=== PATIENT | male | born 1995 | race Caucasian/White ===

== ENCOUNTER 2018-01-01 14:27 | Emergency (ER) | payer SELFPAY ==
[~2018-01-01] VITALS: Ht 167.6 cm; Wt 95.0 kg
[2018-01-01 14:40] VITALS: BP 144/74; PULSE 93; RESP 16; TEMP 100.9; O2SAT 97
[2018-01-01] MEDS ORDERED: SODIUM CHLOR 0.9% 1000 ML INJ 1,000 ML IV SCH (14:54)
[2018-01-01] MEDS ORDERED: SODIUM CHLORIDE 0.9% FLUSH 10 ML FLUSH IV FLUSH PRN (15:00)
[2018-01-01] MEDS ORDERED: ONDANSETRON HCL 4 MG/2 ML VIAL IVP ONE (15:00)
[2018-01-01 15:19] LABS: AUTOMATED NEUTROPHIL # 10.2 TH/MM3 (1.8-7.7); BASOPHIL % 0.2 % (0.0-2.0); HEMATOCRIT 44.5 % (39.0-51.0); HEMOGLOBIN 15.6 GM/DL (13.0-17.0); LYMPH % 4.6 % (9.0-44.0); LYMPHOCYTE # 0.5 TH/MM3 (1.0-4.8); MEAN CELL VOLUME 86.2 FL (80.0-100.0); MEAN CORPUSCULAR HEMOGLOBIN 30.1 PG (27.0-34.0); MEAN PLATELET VOLUME 8.6 FL (7.0-11.0); MONO % 8.3 % (0.0-8.0); NEUT % 86.9 % (16.0-70.0); PLATELET COUNT 228 TH/MM3 (150-450); RED BLOOD COUNT 5.17 MIL/MM3 (4.50-5.90); RED CELL DISTRIBUTION WIDTH 11.9 % (11.6-17.2); WHITE BLOOD COUNT 11.7 TH/MM3 (4.0-11.0)
[2018-01-01 15:20] LABS: BILIRUBIN, URINE NEG (NEG); BLOOD, URINE TRACE (NEG); GLUCOSE,URINE NEG (NEG); KETONE, URINE NEG (NEG); NITRITE,URINE NEG (NEG); URINE LEUKOCYTE ESTERASE NEG (NEG)
[2018-01-01 15:21] LABS: URINE COLOR YELLOW (YELLW/STRAW)
[2018-01-01 15:24] LABS: RBC, URINE 0-3 /hpf (0-3); SQUAMOUS EPITHELIAL CELL URINE 0-5 /hpf (0-5); WBC, URINE 0-2 /hpf (0-5)
[2018-01-01 15:27] LABS: CHLORIDE 101 MEQ/L (98-107); SODIUM (NA) 135 MEQ/L (136-145)
[2018-01-01 15:30] LABS: CALCIUM 8.8 MG/DL (8.5-10.1)
[2018-01-01 15:31] LABS: ALBUMIN 4.1 GM/DL (3.4-5.0); BICARBONATE 26.8 MEQ/L (21.0-32.0); BLOOD UREA NITROGEN 16 MG/DL (7-18); GLUCOSE,RANDOM 96 MG/DL (74-106)
[2018-01-01 15:33] LABS: ALT (GPT) 43 U/L (12-78)
[2018-01-01 15:34] LABS: AST (GOT) 20 U/L (15-37); CREATININE 0.98 MG/DL (0.60-1.30); GLOMERULAR FILTRATION RATE 94 ML/MIN (>89)
[2018-01-01 15:35] LABS: TOTAL BILIRUBIN ADULT 0.4 MG/DL (0.2-1.0); TOTAL PROTEIN 8.2 GM/DL (6.4-8.2)
[2018-01-01 15:36] LABS: ALKALINE PHOSPHATASE 73 U/L (45-117)
[2018-01-01 15:45] VITALS: TEMP 102.1
[2018-01-01] MEDS ORDERED: ACETAMINOPHEN 500 MG CPLT PO ONE (15:45)
[2018-01-01] MEDS ORDERED: OSEL75 PO (15:49)
[2018-01-01] MEDS ORDERED: ZOFR4TAB3 SL (15:49)
--- NOTE | 2018-01-01 15:51 | PD ---
HPI Chief Complaint: GI Complaint Time Seen by Provider: 14:45 Travel History International Travel<30 days: No Contact w/Intl Traveler<30days: No Traveled to known affect area: No History of Present Illness HPI This is an otherwise healthy 22-year-old male who presents for flulike symptoms. He states that yesterday, he developed fever, chills, body aches, nausea and nonbilious, nonbloody emesis. No diarrhea. No abdominal pain. No rash, neck pain or stiffness. He has mild associated headache with the fever. It came on gradually and did not reach maximum intensity rapidly. No photophobia. No change in vision. No focal weakness, numbness, tingling. No urinary complaints. No significant nasal congestion or cough. No difficulty breathing, speaking, swallowing. Symptoms are mild in severity. Onset gradual. Prior treatment includes ibuprofen about 2 hours ago. PFSH Past Medical History Medical History: Denies Significant Hx Diminished Hearing: No Tetanus Vaccination: Unknown Influenza Vaccination: No Past Surgical History Surgical History: No Previous Surgery Social History Alcohol Use: Yes ([facility]) Tobacco Use: No Substance Use: No Allergies-Medications (Allergen,Severity, Reaction): Coded Allergies: No Known Allergies (Unverified , 01/01/18) Reported Meds & Prescriptions Reported Meds & Active Scripts Active No Active Prescriptions or Reported Medications Review of Systems Except as stated in HPI: all other systems reviewed are Neg Physical Exam Narrative GENERAL: Alert, well nourished, well appearing patient resting on the bed in no acute distress. Vital Signs reviewed SKIN: Focused skin assessment warm/dry. HEAD: Atraumatic. Normocephalic. EYES: Pupils equal and round. No scleral icterus. No injection or drainage. No photophobia. ENT: No nasal bleeding or discharge. Mucous membranes pink and moist. TMs clear bilaterally. No tenderness over the mastoids. Posterior oropharynx with no erythema, edema, exudate. Uvula is midline. NECK: Trachea midline. No JVD. Spontaneous, painless full range of motion with no meningismus CARDIOVASCULAR: Regular rate and rhythm. No murmur appreciated. Extremities warm and well perfused with bounding peripheral pulses RESPIRATORY: No accessory muscle use. Clear to auscultation. Breath sounds equal bilaterally. Breathing easily and speaking in full sentences GASTROINTESTINAL: Abdomen soft, non-tender, nondistended. Normal bowel sounds. No rigid, rebound, guarding. No tenderness at McBurney's point. Negative Musa sign MUSCULOSKELETAL: No obvious deformities. No clubbing. No cyanosis. No edema. Compartments are soft NEUROLOGICAL: Awake and alert. No obvious cranial nerve deficits. Motor grossly within normal limits. Normal speech. Sensation intact. Normal gait. No pronator drift Data Data Last Documented VS Vital Signs Date Time Temp Pulse Resp B/P (MAP) Pulse Ox O2 Delivery O2 Flow Rate FiO2 01/01/18 14:51 16 01/01/18 14:40 100.9 93 144/74 (97) 97 Orders Orders Complete Blood Count With Diff (01/01/18 14:54) Comprehensive Metabolic Panel (01/01/18 14:54) Lipase (01/01/18 14:54) Urinalysis - C+S If Indicated (01/01/18 14:54) Iv Access Insert/Monitor (01/01/18 14:54) Ondansetron Inj (Zofran Inj) (01/01/18 15:00) Sodium Chlor 0.9% 1000 Ml Inj (Ns 1000 M (01/01/18 14:54) Sodium Chloride 0.9% Flush (Ns Flush) (01/01/18 15:00) Influenzae A/B Antigen (01/01/18 14:54) Labs Laboratory Tests Test 01/01/18 15:03 01/01/18 15:06 Urine Collection Type CLEAN CATCH Urine Color YELLOW Urine Turbidity CLEAR Urine pH 6.0 Urine Specific [employer] 1.022 Urine Protein TRACE mg/dL Urine Glucose (UA) NEG mg/dL Urine Ketones NEG mg/dL Urine Occult Blood TRACE Urine Nitrite NEG Urine Bilirubin NEG Urine Leukocyte Esterase NEG Urine RBC 0-3 /hpf Urine WBC 0-2 /hpf Urine Squamous Epithelial Cells 0-5 /hpf Microscopic Urinalysis Comment CULT NOT INDICATED Urine Collection Time 15:03 White Blood Count 11.7 TH/MM3 Red Blood Count 5.17 MIL/MM3 Hemoglobin 15.6 GM/DL Hematocrit 44.5 % Mean Corpuscular Volume 86.2 FL Mean Corpuscular Hemoglobin 30.1 PG Mean Corpuscular Hemoglobin Concent 35.0 % Red Cell Distribution Width 11.9 % Platelet Count 228 TH/MM3 Mean Platelet Volume 8.6 FL Neutrophils (%) (Auto) 86.9 % Lymphocytes (%) (Auto) 4.6 % Monocytes (%) (Auto) 8.3 % Eosinophils (%) (Auto) 0.0 % Basophils (%) (Auto) 0.2 % Neutrophils # (Auto) 10.2 TH/MM3 Lymphocytes # (Auto) 0.5 TH/MM3 Monocytes # (Auto) 1.0 TH/MM3 Eosinophils # (Auto) 0.0 TH/MM3 Basophils # (Auto) 0.0 TH/MM3 CBC Comment DIFF FINAL Differential Comment Blood Urea Nitrogen 16 MG/DL Creatinine 0.98 MG/DL Random Glucose 96 MG/DL Total Protein 8.2 GM/DL Albumin 4.1 GM/DL Calcium Level 8.8 MG/DL Alkaline Phosphatase 73 U/L Aspartate Amino Transf (AST/SGOT) 20 U/L Alanine Aminotransferase (ALT/SGPT) 43 U/L Total Bilirubin 0.4 MG/DL Sodium Level 135 MEQ/L Potassium Level 4.0 MEQ/L Chloride Level 101 MEQ/L Carbon Dioxide Level 26.8 MEQ/L Anion Gap 7 MEQ/L Estimat Glomerular Filtration Rate 94 ML/MIN Lipase 69 U/L MDM Medical Decision Making Medical Screen Exam Complete: Yes Emergency Medical Condition: Yes Medical Record Reviewed: Yes Interpretation(s) Date/Time Source Procedure Growth Status 01/01/18 15:09 Nasal Washing Influenza Types A,B Antigen (TAMMI) - Final Positive For Flu A Antigen Complete Laboratory Tests Test 01/01/18 15:03 01/01/18 15:06 Urine Collection Type CLEAN CATCH Urine Color YELLOW Urine Turbidity CLEAR Urine pH 6.0 Urine Specific [employer] 1.022 Urine Protein TRACE mg/dL Urine Glucose (UA) NEG mg/dL Urine Ketones NEG mg/dL Urine Occult Blood TRACE Urine Nitrite NEG Urine Bilirubin NEG Urine Leukocyte Esterase NEG Urine RBC 0-3 /hpf Urine WBC 0-2 /hpf Urine Squamous Epithelial Cells 0-5 /hpf Microscopic Urinalysis Comment CULT NOT INDICATED Urine Collection Time 15:03 White Blood Count 11.7 TH/MM3 Red Blood Count 5.17 MIL/MM3 Hemoglobin 15.6 GM/DL Hematocrit 44.5 % Mean Corpuscular Volume 86.2 FL Mean Corpuscular Hemoglobin 30.1 PG Mean Corpuscular Hemoglobin Concent 35.0 % Red Cell Distribution Width 11.9 % Platelet Count 228 TH/MM3 Mean Platelet Volume 8.6 FL Neutrophils (%) (Auto) 86.9 % Lymphocytes (%) (Auto) 4.6 % Monocytes (%) (Auto) 8.3 % Eosinophils (%) (Auto) 0.0 % Basophils (%) (Auto) 0.2 % Neutrophils # (Auto) 10.2 TH/MM3 Lymphocytes # (Auto) 0.5 TH/MM3 Monocytes # (Auto) 1.0 TH/MM3 Eosinophils # (Auto) 0.0 TH/MM3 Basophils # (Auto) 0.0 TH/MM3 CBC Comment DIFF FINAL Differential Comment Blood Urea Nitrogen 16 MG/DL Creatinine 0.98 MG/DL Random Glucose 96 MG/DL Total Protein 8.2 GM/DL Albumin 4.1 GM/DL Calcium Level 8.8 MG/DL Alkaline Phosphatase 73 U/L Aspartate Amino Transf (AST/SGOT) 20 U/L Alanine Aminotransferase (ALT/SGPT) 43 U/L Total Bilirubin 0.4 MG/DL Sodium Level 135 MEQ/L Potassium Level 4.0 MEQ/L Chloride Level 101 MEQ/L Carbon Dioxide Level 26.8 MEQ/L Anion Gap 7 MEQ/L Estimat Glomerular Filtration Rate 94 ML/MIN Lipase 69 U/L Differential Diagnosis Upper respiratory infection, acute gastroenteritis, dehydration, influenza, UTI , appendicitis less likely Narrative Course IV access was established. Labs, influenza tests were performed. Patient is influenza A positive. He was given IV fluids, Zofran for nausea with excellent result. Upon reexamination at 3:40 PM: He is resting comfortably on the bed. He is drinking without difficulty. He has had no vomiting in the emergency department. His abdomen is soft, nontender, nondistended. He was given Tylenol for fever and headache. He has no neck pain or stiffness or evidence of meningitis. I reviewed the results of the workup with him. Plan for discharge with supportive care, Zofran for nausea, Tamiflu and close outpatient follow-up. Patient understands the importance of close outpatient follow-up. He understands he may require further testing and treatment as an outpatient. He understands strict return indications. He is comfortable with this plan and eager to go home. Diagnosis Primary Impression: Influenza A Referrals: Primary Care Physician 2 days Patient Instructions: General Instructions, Influenza (DC) Additional Instructions: Drink plenty of fluids to stay well-hydrated. Use Zofran for nausea. Alternate Tylenol and ibuprofen for fever and pain. Take Tamiflu as directed. Follow up closely with primary physician. Return with worsening symptoms Med/Other Pt SpecificInfo: Prescription(s) given Scripts Ondansetron Odt (Zofran Odt) 4 Mg Tab 4 MG SL Q8HR Y for Nausea/Vomiting, #12 TAB 0 Refills Prov: Janet Yoder MD 01/01/18 Oseltamivir (Tamiflu) 75 Mg Cap 75 MG PO BID for 5 Days, #10 CAP 0 Refills Prov: Janet Yoder MD 01/01/18 Disposition: 01 DISCHARGE HOME Condition: Stable Janet Yoder MD Jan 01, 2018 15:51
[2018-01-01 17:09] VITALS: TEMP 99.2
== END 2018-01-01 17:58 | disposition home or self-care (01) ==
LOC: PHED 14:27
DX: J09.X2 Influenza due to identified novel influenza A virus with other respiratory manifestations (principal)
CPT/HCPCS: 80053; 81001; 83690; 85025; 87804; 96361; 96374; 99283; J2405; J7030